=== PATIENT | male | born 1940 | race Caucasian/White ===

== ENCOUNTER 2018-11-27 16:58 | Emergency (ER) | payer OTHER ==
[~2018-11-27] VITALS: Ht 188 cm; Wt 90.3 kg
[2018-11-27 17:05] VITALS: BP 173/84
[2018-11-27] MEDS ORDERED: TUMS PO (17:30)
[2018-11-27] MEDS ORDERED: SYNTHROID150 MCG PO (17:30)
[2018-11-27] MEDS ORDERED: VITAMIN D1000 UNI1 PO (17:31)
[2018-11-27] MEDS ORDERED: VITAMINC500 PO (17:31)
[2018-11-27] MEDS ORDERED: OCUVITE ADULT1 EAC1 PO (17:31)
[2018-11-27] MEDS ORDERED: TOPROL XL25 MG PO (17:32)
[2018-11-27] MEDS ORDERED: ACYCLOVIR 400400 MG PO (17:32)
[2018-11-27] MEDS ORDERED: BROVANA15 MCG/2 M INH (17:33)
[2018-11-27] MEDS ORDERED: LASIX 20 MG TAB20 MG PO (17:33)
[2018-11-27] MEDS ORDERED: MOBIC15 MG PO (17:33)
[2018-11-27] MEDS ORDERED: ZYRTEC10 M5 PO (17:33)
[2018-11-27] MEDS ORDERED: ACCUNEB SO1.25 MG/1 INH (17:33)
[2018-11-27] MEDS ORDERED: LIPITOR80 MG PO (17:34)
[2018-11-27] MEDS ORDERED: ZETIA10 MG PO (17:34)
[2018-11-27] MEDS ORDERED: FLOMAX0.4 MG PO (17:34)
[2018-11-27] MEDS ORDERED: PULMICORT0.5 MG/22 INH (17:34)
[2018-11-27] MEDS ORDERED: TRAZODONE HCL50 MG PO (17:35)
[2018-11-27] MEDS ORDERED: PRILOSEC2.5 MG PO (17:35)
[2018-11-27] MEDS ORDERED: DECADRON4 MG PO (17:36)
[2018-11-27] MEDS ORDERED: TYLENOL WITH CO1 TA1 PO (17:36)
[2018-11-27 17:48] LABS: URINE BLOOD 3+ (Negative); URINE CLARITY CLEAR; URINE COLOR YELLOW; URINE GLUCOSE-RANDOM NEGATIVE (Negative); URINE KETONES NEGATIVE (Negative); URINE LEUKOCYTES-REFLEX TRACE (Negative); URINE NITRITE-REFLEX NEGATIVE (Negative); URINE PROTEIN 2+ (Negative); URINE UROBILINOGEN 0.2 E.U./dl (0.2-1.0)
[2018-11-27 17:52] LABS: URINE BILIRUBIN 1+ (Negative)
[2018-11-27 17:53] LABS: ICTOTEST (BILI CONFIRMATORY) Negative (Negative)
[2018-11-27 18:00] LABS: BACTERIA-REFLEX >30 Many /HPF (None Seen); CASTS None Seen /LPF (None Seen); CRYSTALS None Seen /LPF (None Seen); SQUAMOUS NONE SEEN /LPF (0-3); URINE RBC 0-2 Rare /HPF (0-2); URINE WBC-REFLEX >25 Many /HPF (0-5)
[2018-11-27] MEDS ORDERED: KEFLEX500 M1 PO (18:05)
== END 2018-11-27 18:22 | disposition home or self-care (01) ==
LOC: M.ERS 16:58
PROVIDERS: Emergency Medicine Emergency Medical Services
DX: N30.91 Cystitis, unspecified with hematuria (principal); E03.9 Hypothyroidism, unspecified; I50.9 Heart failure, unspecified; J44.9 Chronic obstructive pulmonary disease, unspecified; Z85.46 Personal history of malignant neoplasm of prostate